=== PATIENT | male | born 2000 | race Caucasian/White ===

== ENCOUNTER 2022-11-02 08:13 | Emergency (ER) | payer SELFPAY ==
[2022-11-02 08:24] VITALS: BP 143/80; PULSE 77; RESP 18; TEMP 97; BMI 40.3
[2022-11-02] MEDS ORDERED: ACETAMINOPHEN 500 MG TABLET (FP) PO ONE (08:40)
[2022-11-02] MEDS ORDERED: ACETAMINOPHEN 325 MG TABLET (FP) ONE (08:57)
== END 2022-11-02 10:10 | disposition home or self-care (01) ==
LOC: JER 08:13
PROC: 2W3CX1Z Immobilization of Right Lower Arm using Splint (ICD-10-PCS; principal; 2022-11-02)
DX: S62.101A Fracture of unspecified carpal bone, right wrist, initial encounter for closed fracture (principal); Y04.0XXA Assault by unarmed brawl or fight, initial encounter
CPT/HCPCS: 73110-TC-RT-FY; 73130-TC-RT-FY; 99283-25